=== PATIENT | female | born 1965 | race Caucasian/White ===

== ENCOUNTER → 2017-08-20 16:48 | Outpatient (CLI) | payer OTHER | END | disposition home or self-care (01) | LOC: D.MAMMO 11:30 | DX: Z12.31 Encounter for screening mammogram for malignant neoplasm of breast (principal) ==

== ENCOUNTER 2020-10-09 14:35 | Outpatient (CLI) | payer OTHER | END 2020-10-09 23:59 | disposition home or self-care (01) | LOC: D.MAMMO 14:35 | PROVIDERS: ATTEND Family Medicine | DX: Z12.31 Encounter for screening mammogram for malignant neoplasm of breast (principal) ==